=== PATIENT | female | born 1960 | race African-American/Black ===

== ENCOUNTER 2018-05-04 10:11 | Emergency (ER) | payer SELFPAY ==
[2018-05-04] MEDS ORDERED: ASPIRIN 81 MG TABLET, CHEWABLE PO ONE (11:26)
--- NOTE | 2018-05-04 11:27 | ER Document Report ---
ED Medical Screen (RME) - General Chief Complaint: Shortness Of Breath Stated Complaint: SHORTNESS OF BREATH, COUGH Time Seen by Provider: 05/04/18 11:21 Primary Care Provider: LAURA DUMONT FNP [Primary Care Provider] - Follow up as needed Notes: 57 years old female with a history of congestive heart failure presents today with cough and shortness of breath for the last denies any chest pain. Denies any other constitutional symptoms. Obesity, no obvious rales or wheezing heard. TRAVEL OUTSIDE OF THE [place] IN LAST 30 DAYS: No - Related Data Allergies/Adverse Reactions: Sulfa (Sulfonamide Antibiotics) Allergy (Verified 05/04/18 10:12) Past Medical History - Social History Chew tobacco use (# tins/day): No Frequency of alcohol use: None Drug Abuse: None - Past Medical History Cardiac Medical History: Reports: Hx Hypercholesterolemia, Hx Hypertension Pulmonary Medical History: Reports: Hx Asthma Endocrine Medical History: Reports: Hx Diabetes Mellitus Type 2 Renal/ Medical History: Denies: Hx Peritoneal Dialysis GI Medical History: Reports: Hx Gastroesophageal Reflux Disease Past Surgical History: Reports: Hx Kidney (Renal Surgery) - stone - Immunizations Hx Diphtheria, Pertussis, Tetanus Vaccination: No Physical Exam - Vital signs Vitals: Temp Pulse Resp BP Pulse Ox 98.6 F 99 19 169/94 H 94 05/04/18 10:15 05/04/18 10:15 05/04/18 10:15 05/04/18 10:15 05/04/18 10:15 Course - Vital Signs Vital signs: Temp Pulse Resp BP Pulse Ox 98.6 F 99 19 169/94 H 94 05/04/18 10:15 05/04/18 10:15 05/04/18 10:15 05/04/18 10:15 05/04/18 10:15 Doctor's Discharge - Discharge Referrals: LAURA DUMONT FNP [Primary Care Provider] - Follow up as needed
--- NOTE | 2018-05-04 11:56 | RADIOLOGY REPORT (SQ) ---
EXAM DESCRIPTION: CHEST SINGLE VIEW COMPLETED DATE/TIME: 05/04/2018 11:39 am REASON FOR STUDY: Cough and shortness of breath COMPARISON: None. NUMBER OF VIEWS: One view. TECHNIQUE: Single frontal radiographic view of the chest acquired. LIMITATIONS: None. FINDINGS: LUNGS AND PLEURA: No opacities, masses or pneumothorax. No pleural effusion. MEDIASTINUM AND HILAR STRUCTURES: No masses or contour abnormality. HEART AND VASCULATURE: Cardiac enlargement. Vascular congestion. BONES: No acute findings. HARDWARE: None in the chest. OTHER: No other significant finding. LUNGS AND PLEURA: No opacities, masses or pneumothorax. No pleural effusion. Atelectasis left upper lobe. IMPRESSION: CARDIAC ENLARGEMENT. VASCULAR CONGESTION. TECHNICAL DOCUMENTATION: JOB ID: [id number] [employer]- All Rights Reserved Reading location - IP/workstation name: [email or web address]
[2018-05-04 12:10] LABS: ABSOLUTE BASOPHILS # (AUTO) 0.1 10^3/uL (0.0-0.2); ABSOLUTE EOSINOPHILS # (AUTO) 0.1 10^3/uL (0.0-0.6); ABSOLUTE LYMPHOCYTES (AUTO) 2.1 10^3/uL (0.5-4.7); ABSOLUTE MONOCYTES (AUTO) 0.3 10^3/uL (0.1-1.4); ABSOLUTE NEUT (AUTO) 4.4 10^3/uL (1.7-8.2); BASOPHILS % (AUTO) 1.2 % (0-2); EOSINOPHILS % (AUTO) 1.5 % (0-6); HEMATOCRIT 38.6 % (36.0-47.0); HEMOGLOBIN 12.8 g/dL (12.0-15.5); LYMPHOCYTES % (AUTO) 30.4 % (13-45); MEAN CORPUSCULAR HEMOGLOBIN 25.3 pg (27.0-33.4); MEAN CORPUSCULAR HGB CONC 33.1 g/dL (32.0-36.0); MEAN CORPUSCULAR VOLUME 77 fl (80-97); MONOCYTES % (AUTO) 4.3 % (3-13); PLATELET COUNT 349 10^3/uL (150-450); RED BLOOD COUNT 5.04 10^6/uL (3.72-5.28); RED CELL DISTRIBUTION WIDTH 14.8 % (11.5-14.0); SEGMENTED NEUTROPHILS % (AUTO) 62.6 % (42-78); TOTAL CELLS COUNTED % (AUTO) 100 %
[2018-05-04 12:33] LABS: ALANINE AMINOTRANSFERASE 31 U/L (9-52); ALBUMIN 4.5 g/dL (3.5-5.0); ALKALINE PHOSPHATASE 101 U/L (38-126); ANION GAP 9 (5-19); ASPARTATE AMINO TRANSFERASE 23 U/L (14-36); BILIRUBIN,DIRECT 0.1 mg/dL (0.0-0.4); BILIRUBIN,TOTAL 0.7 mg/dL (0.2-1.3); BLOOD UREA NITROGEN 14 mg/dL (7-20); CALCIUM 9.5 mg/dL (8.4-10.2); CARBON DIOXIDE 29 mmol/L (22-30); CHLORIDE 105 mmol/L (98-107); CREATINE KINASE 448 U/L (30-135); GLUCOSE 132 mg/dL (75-110); POTASSIUM 3.9 mmol/L (3.6-5.0); SODIUM 143.2 mmol/L (137-145); TOTAL PROTEIN 7.7 g/dL (6.3-8.2)
[2018-05-04 12:45] LABS: CREATINE KINASE MB 1.62 ng/mL (<4.55); TROPONIN I 0.016 ng/mL
[2018-05-04] MEDS ORDERED: FUROSEMIDE INJ/PF 40 MG/4 ML SDV IV ONE ×2 (17:49→20:32)
--- NOTE | 2018-05-04 19:01 | ER Document Report ---
Addendum entered and electronically signed by KARIE GARCIA PA-C 05/06/18 12:26: Review of Systems - Review of Systems Constitutional: See HPI EENT: No symptoms reported Cardiovascular: See HPI Respiratory: See HPI Gastrointestinal: No symptoms reported Genitourinary: No symptoms reported Female Genitourinary: No symptoms reported Musculoskeletal: No symptoms reported Skin: No symptoms reported Hematologic/Lymphatic: No symptoms reported Neurological/Psychological: No symptoms reported Addendum entered and electronically signed by KARIE GARCIA PA-C 05/06/18 12:25: History of Present Illiness - HPI HPI: Patient is a 57-year-old female presents to the emergency department for generalized cough, congestion, respiratory distress. Patient states she knows she has a long-standing history of hypertension, diabetes, hyperlipidemia but has been untreated for multiple years due to her not having any sort of medical insurance. Patient states she was having respiratory distress and chest pains about 2 weeks ago and presented to [facility]. Patient states she was admitted to that facility at that time and was diagnosed with congestive heart failure. Patient states she also received a cardiac catheterizations and they told her she had no clots. Patient states she does have follow-up with a theater education teacher at [facility] this Wednesday she is unsure of names. Patient states that they placed her on multiple medications when she was discharged 2 weeks ago to include Lasix 40 mg daily, p otassium, atorvastatin, metoprolol, lisinopril, Levemir. Patient states she has been taking medications as prescribed and has also been partaking in the low- sodium diet. Patient states She continues with respiratory distress, cough, more respiratory distress on exertion. Patient states that she does not yet have established care at the theater education teacher she presents to the emergency room because she is unsure of what to do. Patient's denying any fever, chest pain, tightness. Addendum entered and electronically signed by KARIE GARCIA PA-C 05/06/18 12:22: Physical Exam - Vital signs Vitals: Temp Pulse Resp BP Pulse Ox 98.6 F 99 19 169/94 H 94 05/04/18 10:15 05/04/18 10:15 05/04/18 10:15 05/04/18 10:15 05/04/18 10:15 - Notes Notes: GENERAL: Obese alert, interacts well. No acute distress. HEAD: Normocephalic, atraumatic. EYES: Pupils equal, round, and reactive to light. Extraocular movements intact. ENT: Oral mucosa moist, tongue midline. NECK: Full range of motion. Supple. Trachea midline. LUNGS: Clear to auscultation bilateral apices, no discernible wheezes, rales, or rhonchi. Diminished bilateral bases no respiratory distress. HEART: Regular rate and rhythm. No murmur ABDOMEN: Obese soft, non-tender. Non-distended. Bowel sounds present in all 4 quadrants. EXTREMITIES: Moves all 4 extremities spontaneously. No edema, normal radial and dorsalis pedis pulses bilaterally. No cyanosis. BACK: no cervical, thoracic, lumbar midline tenderness. No saddle anesthesia, normal distal neurovascular exam. NEUROLOGICAL: Alert and oriented x3. Normal speech. cranial nerves II through XII grossly intact PSYCH: Normal affect, normal mood. SKIN: Warm, dry, normal turgor. No rashes or lesions noted. Original Note: ED Respiratory Problem - General TRAVEL OUTSIDE OF THE [place] IN LAST 30 DAYS: No <KARIE GARCIA - Last Filed: 05/04/18 19:00> <ALE ISABEL - Last Filed: 05/05/18 05:40> - General Chief Complaint: Shortness Of Breath Stated Complaint: SHORTNESS OF BREATH, COUGH Time Seen by Provider: 05/04/18 11:21 Primary Care Provider: LAURA DUMONT FNP [NURSE PRACTITIONER] - Follow up as needed Notes: Patient is a 57-year-old female presents to the emergency department chief complaint respiratory distress (KARIE GARCIA) - Related Data Allergies/Adverse Reactions: Sulfa (Sulfonamide Antibiotics) Allergy (Verified 05/04/18 10:12) Past Medical History - Social History Smoking Status: Never Smoker Chew tobacco use (# tins/day): No Frequency of alcohol use: None Drug Abuse: None Family History: CAD, DM Patient has suicidal ideation: No Patient has homicidal ideation: No - Past Medical History Cardiac Medical History: Reports: Hx Hypercholesterolemia, Hx Hypertension Pulmonary Medical History: Reports: Hx Asthma Endocrine Medical History: Reports: Hx Diabetes Mellitus Type 2 Renal/ Medical History: Denies: Hx Peritoneal Dialysis GI Medical History: Reports: Hx Gastroesophageal Reflux Disease Past Surgical History: Reports: Hx Kidney (Renal Surgery) - stone - Immunizations Hx Diphtheria, Pertussis, Tetanus Vaccination: No <KARIE GARCIA - Last Filed: 05/04/18 19:00> - Vital signs Vitals: Temp Pulse Resp BP Pulse Ox 98.6 F 99 19 169/94 H 94 05/04/18 10:15 05/04/18 10:15 05/04/18 10:15 05/04/18 10:15 05/04/18 10:15 Course - Laboratory Result Diagrams: 05/04/18 12:00 05/04/18 12:00 <KARIE GARCIA - Last Filed: 05/04/18 19:00> - Laboratory Result Diagrams: 05/04/18 12:00 05/04/18 12:00 <ALE ISABEL - Last Filed: 05/05/18 05:40> - Re-evaluation Re-evalutation: Patient well-appearing on exam, speaking in full sentences. 2- troponins, BNP is only 900, vascular congestion per x-ray read, small pleural effusion on the right with CT scan but no evidence of pulmonary emboli. Patient reports compliance with her medication and diet. Patient did have some increased work of breathing with ambulation but no concerning desaturation. I did discuss with Dr. Gardner, internal medicine, he feels that patient will be adequately served by giving 2 doses of IV diuresis and having her continue home medication with close primary care follow-up which is already established. He does not recommend admission at this time. I discussed this with Dr. Perez. Patient given IV diuresis. Patient is reevaluated. Discussed different options, family and patient are stating they would like to be discharged home and they will follow-up in the office. I discussed return precautions in detail. Patient and family state satisfaction and agreement with plan. (ALE ISABEL) - Vital Signs Vital signs: Temp Pulse Resp BP Pulse Ox 98.7 F 99 32 H 144/76 H 93 05/04/18 21:33 05/04/18 10:15 05/04/18 21:00 05/04/18 19:01 05/04/18 21:00 - Laboratory Laboratory results interpreted by me: 05/04/18 05/04/18 05/04/18 12:00 12:00 12:00 MCV 77 L MCH 25.3 L RDW 14.8 H Glucose 132 H Creatine Kinase 448 H NT-Pro-B Natriuret Pep 922 H Discharge <KARIE GARCIA - Last Filed: 05/04/18 19:00> <ALE ISABEL - Last Filed: 05/05/18 05:40> - Discharge Clinical Impression: Cough, Dyspnea on exertion Condition: Stable Disposition: HOME, SELF-CARE Additional Instructions: Your CAT scan of the chest shows a small effusion but no concerning findings otherwise including no blood clot. Continue your current management, you have been given to doses of IV diuretics here, continue low-salt diet and current medications, follow-up very closely with your primary care provider referral for additional evaluation and management. Return if you worsen including fever, increased difficulty breathing, passing out, or any other concerning or worsening symptoms. Referrals: LAURA DUMONT FNP [NURSE PRACTITIONER] - Follow up as needed
[2018-05-04 19:06] VITALS: BP 144/76
--- NOTE | 2018-05-04 19:50 | RADIOLOGY REPORT (SQ) ---
EXAM DESCRIPTION: CTA CHEST COMPLETED DATE/TIME: 05/04/2018 7:33 pm REASON FOR STUDY: resp distress COMPARISON: None. TECHNIQUE: CT scan of the chest performed using helical scanning technique with dynamic intravenous contrast injection. Images reviewed with lung, soft tissue and bone windows. Reconstructed coronal and sagittal MPR images reviewed. Additional 3 dimensional post-processing performed to develop Maximal Intensity Projection images ([place] P). All images stored on PACS. All CT scanners at this facility use dose modulation, iterative reconstruction, and/or weight based d osing when appropriate to reduce radiation dose to as low as reasonably achievable (ALARA). [facility]: Dose Right [facility]: CareDose [facility]: Dose Right [facility]: Teradose 4D [facility]: [employer] CONTRAST TYPE AND DOSE: contrast/concentration: Isovue mg/ml; Total Contrast Delivered: 85.0 ml; To lin Saline Delivered: 110.0 ml Contrast bolus optimized for the pulmonary arteries. Not diagnostic for the aorta. RENAL FUNCTION: BUN 14 creatinine 0.74 RADIATION DOSE: CT Rad equipment meets quality standard of care and radiation dose reduction techniq ues were employed. CTDIvol: 34.8 - 59.5 mGy. DLP: 1360 mGy-cm. . LIMITATIONS: None. FINDINGS: LUNGS AND PLEURA: Small to moderate right pleural effusion. Minimal left pleural effusion . Minimal compressive atelectasis in the right lower lobe. AORTA AND GREAT VESSELS: No aneurysm. Contrast bolus not optimized for the aorta. HEART: No pericardial effusion. No significant coronary artery calcifications. PULMONARY ARTERIES: No emboli visualized in the main pulmonary arteries or the segmental branches. HILAR AND MEDIASTINAL STRUCTURES: There is mild mediastinal adenopathy. A precarinal node has a shor t axis diameter of 11 mm. Mild right hilar adenopathy. HARDWARE: None in the chest. UPPER ABDOMEN: Nonobstructing intrarenal calculi. Large left renal cyst. THYROID AND OTHER SOFT TISSUES: No masses. No adenopathy. BONES: No acute or significant finding. 3D MIPS: Confirm above findings. OTHER: No other significant finding. IMPRESSION: There is no evidence of pulmonary emboli. Right pleural effusion. Minimal subsegmental atelectasis in the right lower lobe. Mild mediastinal and right hilar adenopathy. Nonobstructing i ntrarenal calculi. Large left renal cyst. COMMENT: Quality ID # [id number]: Final reports with documentation of one or more dose reduction techniques (e.g., Automated exposure control, adjustment of the mA and/or kV according to patient size, use of iterative reconstruction technique) TECHNICAL DOCUMENTATION: JOB ID: [id number] [employer]- All Rights Reserved Reading location - IP/workstation name: [email or web address]
--- NOTE | 2018-05-05 22:18 | EKG REPORT ---
SEVERITY:- ABNORMAL ECG - SINUS RHYTHM LEFT ATRIAL ABNORMALITY PROBABLE LEFT VENTRICULAR HYPERTROPHY BORDERLINE PROLONGED QT INTERVAL : Confirmed by: Sanjana Sultana 05-May-2018 22:18:03
== END 2018-05-04 21:34 | disposition home or self-care (01) ==
LOC: ER 10:11
DX: I11.0 Hypertensive heart disease with heart failure (principal); I50.9 Heart failure, unspecified; R05 Cough; J45.909 Unspecified asthma, uncomplicated; E11.9 Type 2 diabetes mellitus without complications; R06.09 Other forms of dyspnea; Z88.2 Allergy status to sulfonamides
CPT/HCPCS: 93005; 96376; 99285; 96374; 36415; 82553; 82550; 85025; 80053; 84484; 83880; 71045; 71275; 93010; J1940